=== PATIENT | female | born 1990 | race Caucasian/White ===

== ENCOUNTER 2017-07-29 20:50 | Emergency (ER) | payer OTHER ==
[~2017-07-29] VITALS: Ht 162.6 cm; Wt 95.0 kg
[2017-07-29 20:52] VITALS: BP 193/116; PULSE 88; RESP 16; TEMP 98.5; O2SAT 99
--- NOTE | 2017-07-29 22:00 | PD ---
HPI Chief Complaint: Headache Time Seen by Provider: 21:59 Travel History International Travel<30 days: No Contact w/Intl Traveler<30days: No Traveled to known affect area: No History of Present Illness HPI 27-year-old female presents with headache and hypertension. Patient states started approximately 3 PM this afternoon. Patient states she was supposed to be taking blood pressure medicine but has not been taking it. Patient states history of migraine headaches in the past off and on, but not for some time. Patient states her headache is in the left side of her face, and she does see some "spots" when she looks to the left. Patient states her headache is a 10 out of 10. Patient denies dizziness, nausea, vomiting, sore throat, or recent fever. Patient cannot remember what she took for blood pressure in the past. She has not tried taking any medication for his current headache. She has no numbness, tingling, or weakness. She has no known drug allergies. PFSH Past Medical History ?: Not LMP: CURRENT Social History Alcohol Use: Yes Tobacco Use: No Substance Use: No Allergies-Medications (Allergen,Severity, Reaction): Coded Allergies: No Known Drug Allergies (Verified Allergy, Unknown, 07/29/17) Reported Meds & Prescriptions Reported Meds & Active Scripts Active Lisinopril 10 Mg Tab 10 Mg PO DAILY Review of Systems Except as stated in HPI: all other systems reviewed are Neg General / Constitutional: No: Fever Eyes: Positive: Photophobia, Visual changes (see history present illness), No: Diploplia, Blurred Vision, Drainage, Redness, Foreign Body Sensation, Pain, Tearing, Blind Spots, Blindness HENT: Positive: Headaches, No: Vertigo, Lightheadedness, Sore Throat, Rhinitis , Rhinorrhea, Congestion, Nosebleed, Neck Stiffness, Neck Pain, Dental Difficulties, Earache Cardiovascular: No: Chest Pain or Discomfort Respiratory: No: Shortness of Breath Gastrointestinal: No: Nausea, Vomiting, Diarrhea, Abdominal Pain Genitourinary: No: Dysuria Musculoskeletal: No: Pain Skin: No Rash Neurologic: No: Weakness Psychiatric: No: Depression Endocrine: No: Polydipsia Hematologic/Lymphatic: No: Easy Bruising Physical Exam Narrative GENERAL: Patient is in mild to moderate distress. SKIN: Warm and dry. Normal color. Normal turgor. No rash. HEAD: Atraumatic. Normocephalic. EYES: Pupils equal and round. No scleral icterus. No injection or drainage. Ocular motion is equal bilaterally. No nystagmus. ENT: No nasal bleeding or discharge. Mucous membranes pink and moist. TMs are clear bilaterally. No sinus tenderness to palpation. Posterior pharynx is clear. Airway is patent. NECK: Trachea midline. Supple and nontender. CARDIOVASCULAR: Regular rate and rhythm. No murmurs gallops or rubs. RESPIRATORY: No accessory muscle use. Clear to auscultation. Breath sounds equal bilaterally. GASTROINTESTINAL: Abdomen soft, non-tender, nondistended. Hepatic and splenic margins not palpable. MUSCULOSKELETAL: Extremities without clubbing, cyanosis, or edema. No obvious deformities. NEUROLOGICAL: Awake and alert. No obvious cranial nerve deficits. Motor grossly within normal limits. Five out of 5 muscle strength in the arms and legs. Normal speech. PSYCHIATRIC: Appropriate mood and affect; insight and judgment normal. Data Data Last Documented VS Vital Signs Date Time Temp Pulse Resp B/P (MAP) Pulse Ox O2 Delivery O2 Flow Rate FiO2 07/29/17 22:54 80 16 158/92 (114) 100 Room Air 07/29/17 20:52 98.5 Orders Orders Complete Blood Count With Diff (07/29/17 22:) Comprehensive Metabolic Panel (07/29/17 22:09) Prothrombin Time / Inr (Pt) (07/29/17 22:09) Act Partial Throm Time (Ptt) (07/29/17 22:09) Ecg Monitoring (07/29/17 22:09) Iv Access Insert/Monitor (07/29/17 22:09) Oximetry (07/29/17 22:) Sodium Chloride 0.9% Flush (Ns Flush) (07/29/17 22:15) Prochlorperazine Inj (Compazine Inj) (07/29/17 22:15) Diphenhydramine Inj (Benadryl Inj) (07/29/17 22:15) Sodium Chlor 0.9% 1000 Ml Inj (Ns 1000 M (07/29/17 22:09) Ed Urine Pregnancytest Poc (07/29/17 22:09) Morphine Inj (Morphine Inj) (07/29/17 22:15) Lisinopril (Prinivil) (07/29/17 22:15) Clonidine (Catapres) (07/29/17 22:15) Labs Laboratory Tests Test 07/29/17 22:15 White Blood Count 8.7 TH/MM3 Red Blood Count 3.48 MIL/MM3 Hemoglobin 9.2 GM/DL Hematocrit 28.3 % Mean Corpuscular Volume 81.4 FL Mean Corpuscular Hemoglobin 26.3 PG Mean Corpuscular Hemoglobin Concent 32.3 % Red Cell Distribution Width 17.2 % Platelet Count 426 TH/MM3 Mean Platelet Volume 7.1 FL Neutrophils (%) (Auto) 56.6 % Lymphocytes (%) (Auto) 29.5 % Monocytes (%) (Auto) 11.3 % Eosinophils (%) (Auto) 1.7 % Basophils (%) (Auto) 0.9 % Neutrophils # (Auto) 4.9 TH/MM3 Lymphocytes # (Auto) 2.6 TH/MM3 Monocytes # (Auto) 1.0 TH/MM3 Eosinophils # (Auto) 0.1 TH/MM3 Basophils # (Auto) 0.1 TH/MM3 CBC Comment DIFF FINAL Differential Comment Prothrombin Time 10.1 SEC Prothromb Time International Ratio 0.9 RATIO Activated Partial Thromboplast Time 22.6 SEC Blood Urea Nitrogen 10 MG/DL Creatinine 0.70 MG/DL Random Glucose 94 MG/DL Total Protein 8.0 GM/DL Albumin 3.3 GM/DL Calcium Level 8.2 MG/DL Alkaline Phosphatase 105 U/L Aspartate Amino Transf (AST/SGOT) 28 U/L Alanine Aminotransferase (ALT/SGPT) 28 U/L Total Bilirubin 0.2 MG/DL Sodium Level 140 MEQ/L Potassium Level 4.2 MEQ/L Chloride Level 108 MEQ/L Carbon Dioxide Level 24.6 MEQ/L Anion Gap 7 MEQ/L Estimat Glomerular Filtration Rate 100 ML/MIN [facility] Medical Decision Making Medical Screen Exam Complete: Yes Emergency Medical Condition: Yes Differential Diagnosis Headache. Hypertension. Migraine. Hypertensive crisis. Narrative Course Patient is medically stable at time of exam. Labs ordered including CBC, CMP, coagulation studies, urinalysis, and urine . IV access is obtained patient is given 10 mg lisinopril by mouth. Patient is given 1000 mls normal saline bolus. CT of the head is not ordered at this time. Recheck blood pressure by nursing staff in the room shows to be 152/92. 2300 hrs. patient is reassessed and found to have improvement in her headache down to about a 4 out of 10. Urinalysis was canceled. CBC shows mild anemia with a hemoglobin of 9.2, hematocrit of 28.3, but CMP is unremarkable. Patient felt stable for discharge home with lisinopril 10 mg daily. Patient should follow-up with her primary care physician in the next 2 weeks for recheck. Patient can return to emergency Department with worsening symptoms as needed. Diagnosis Primary Impression: Hypertension Qualified Codes: I10 - Essential (primary) hypertension Additional Impression: Headache Qualified Codes: R51 - Headache Referrals: [facility] PO Patient Instructions: 4 Gram Sodium Diet (DC), General Instructions Additional Instructions: Patient felt stable for discharge home with lisinopril 10 mg daily. Patient should follow-up with her primary care physician in the next 2 weeks for recheck. Patient can return to emergency Department with worsening symptoms as needed. Med/Other Pt SpecificInfo: Prescription(s) given Scripts Lisinopril (Lisinopril) 10 Mg Tab 10 MG PO DAILY, #30 TAB 0 Refills Prov: Sampson Lewis MD 07/29/17 Disposition: DISCHARGE HOME Condition: Stable Geoffrey Patel Jul 29, 2017 22:00
[2017-07-29] MEDS ORDERED: SODIUM CHLOR 0.9% 1000 ML INJ 1,000 ML IV ONE (22:09)
[2017-07-29 22:15] VITALS: PULSE 81; RESP 16; O2SAT 100
[2017-07-29] MEDS ORDERED: LISINOPRIL 10 MG TAB PO ONE (22:15)
[2017-07-29] MEDS ORDERED: cloNIDine HCL 0.1 MG TAB PO ONE (22:15)
[2017-07-29] MEDS ORDERED: diphenhydrAMINE HCL 50 MG/ML VIAL IVP ONE (22:15)
[2017-07-29] MEDS ORDERED: MORPHINE SULFATE 2 MG/ML INJ IV PUSH ONE (22:15)
[2017-07-29] MEDS ORDERED: SODIUM CHLORIDE 0.9% FLUSH 10 ML FLUSH IVF PRN (22:15)
[2017-07-29] MEDS ORDERED: PROCHLORPERAZINE INJ 10 MG/2 ML VIAL IVP ONE (22:15)
[2017-07-29 22:38] LABS: AUTOMATED NEUTROPHIL # 4.9 TH/MM3 (1.8-7.7); BASOPHIL # 0.1 TH/MM3 (0-0.2); BASOPHIL % 0.9 % (0.0-2.0); EOSINOPHIL # 0.1 TH/MM3 (0-0.4); EOSINOPHIL % 1.7 % (0.0-4.0); HEMATOCRIT 28.3 % (35.0-46.0); HEMO FLAGS DIFF FINAL; LYMPH % 29.5 % (9.0-44.0); LYMPHOCYTE # 2.6 TH/MM3 (1.0-4.8); MEAN CELL VOLUME 81.4 FL (80.0-100.0); MEAN CORPUSCULAR HEMOGLOBIN 26.3 PG (27.0-34.0); MEAN CORPUSCULAR HGB CONC 32.3 % (32.0-36.0); MONO % 11.3 % (0.0-8.0); NEUT % 56.6 % (16.0-70.0); PLATELET COUNT 426 TH/MM3 (150-450); RED BLOOD COUNT 3.48 MIL/MM3 (4.00-5.30); RED CELL DISTRIBUTION WIDTH 17.2 % (11.6-17.2); WHITE BLOOD COUNT 8.7 TH/MM3 (4.0-11.0)
[2017-07-29 22:48] LABS: INTERNATIONAL NORMALIZED RATIO 0.9 RATIO; PROTHROMBIN TIME - PATIENT 10.1 SEC (9.8-11.6)
[2017-07-29 22:54] VITALS: BP 158/92; PULSE 80; RESP 16; O2SAT 100
[2017-07-29] MEDS ORDERED: LISI10TA3 PO (23:00)
[2017-07-29 23:03] LABS: APTT (PATIENT) 22.6 SEC (24.3-30.1)
[2017-07-29 23:04] LABS: ALKALINE PHOSPHATASE 105 U/L (45-117); TOTAL BILIRUBIN ADULT 0.2 MG/DL (0.2-1.0)
[2017-07-29 23:08] LABS: ALT (GPT) 28 U/L (10-53); ANION GAP 7 MEQ/L (5-15); AST (GOT) 28 U/L (15-37); BICARBONATE 24.6 MEQ/L (21.0-32.0); BLOOD UREA NITROGEN 10 MG/DL (7-18); CHLORIDE 108 MEQ/L (98-107); GLOMERULAR FILTRATION RATE 100 ML/MIN (>89); POTASSIUM 4.2 MEQ/L (3.5-5.1); SODIUM (NA) 140 MEQ/L (136-145)
== END 2017-07-30 00:06 | disposition home or self-care (01) ==
LOC: NEPE 20:50
DX: I10 Essential (primary) hypertension (principal); R51 Headache; Z79.899 Other long term (current) drug therapy
CPT/HCPCS: 80053; 85025; 85610; 85730; 96360; 99284; J7030